=== PATIENT | male | born 1990 | race African-American/Black ===

== ENCOUNTER 2020-11-20 06:19 | Day surgery (SDC) | payer OTHER, SELFPAY ==
[~2020-11-20] VITALS: Ht 172.7 cm; Wt 59.0 kg
[2020-11-20] MEDS ORDERED: BUPIVACAINE-MPF/EPI 0.25% 30 ML VIAL INJ ONE (08:08)
[2020-11-20] MEDS ORDERED: NEOSTIGMINE 1:1000 10 MG/10 ML VIAL ONE (08:53)
[2020-11-20] MEDS ORDERED: KETOROLAC 30 MG/ML VIAL ONE (08:53)
[2020-11-20] MEDS ORDERED: ROCURONIUM 50 MG/5 ML VIAL IV ONE (08:53)
[2020-11-20] MEDS ORDERED: ONDANSETRON 4 MG/2 ML VIAL ONE (08:53)
[2020-11-20] MEDS ORDERED: DEXAMETHASONE 4 MG/ML VIAL ONE (08:53)
[2020-11-20] MEDS ORDERED: PROPOFOL 200 MG/20 ML VIAL IV ONE (08:53)
[2020-11-20] MEDS ORDERED: LIDOCAINE MPF 2% 100 MG/5 ML VIAL INJ ONE (08:53)
[2020-11-20] MEDS ORDERED: GLYCOPYRROLATE 0.2 MG/ML VIAL ONE (08:53)
[2020-11-20] MEDS ORDERED: METOCLOPRAMIDE 10 MG/2 ML INJ VIAL ONE (08:53)
[2020-11-20] MEDS ORDERED: MEPERIDINE 25 MG/ML SYR ONE (08:54)
[2020-11-20] MEDS ORDERED: fentaNYL citrate 0.05 MG/ML VIAL ONE (08:54)
[2020-11-20] MEDS ORDERED: ONDANSETRON 4 MG/2 ML VIAL IVP PRN (09:55)
[2020-11-20] MEDS ORDERED: MEPERIDINE 25 MG/ML SYR IVP PRN (09:55)
[2020-11-20] MEDS ORDERED: LACTATED RINGERS 1,000 ML IV SCH (09:55)
[2020-11-20] MEDS ORDERED: fentaNYL citrate 0.05 MG/ML VIAL IVP PRN (09:55)
[2020-11-20] MEDS ORDERED: diphenhydrAMINE 50 MG/ML VIAL IVP PRN (09:55)
[2020-11-20] MEDS ORDERED: oxyCODONE/APAP 5/325 MG 1 TAB TAB PO PRN (09:55)
[2020-11-20] MEDS ORDERED: MORPHINE SULFATE 2 MG/ML SYR IVP PRN (10:30)
[2020-11-20] MEDS ORDERED: ONDANSETRON 4 MG/2 ML VIAL IV PRN (10:30)
[2020-11-20] MEDS ORDERED: HYDROcodone/APAP 5/325 MG 1 TAB TAB PO PRN (10:30)
[2020-11-20] MEDS ORDERED: MORPHINE SULFATE 4 MG/ML SYR IV PRN (10:30)
[2020-11-20] MEDS ORDERED: HYDROmorphone 1 MG/ML AMP IVP PRN (10:30)
== END 2020-11-20 12:20 | disposition home or self-care (01) ==
LOC: MDS 06:19 → MMU 06:20 → MDS 12:20
PROVIDERS: ATTEND Surgery
DX: K43.2 Incisional hernia without obstruction or gangrene (principal); K40.90 Unilateral inguinal hernia, without obstruction or gangrene, not specified as recurrent; Z79.899 Other long term (current) drug therapy; Z20.822 Contact with and (suspected) exposure to COVID-19
CPT/HCPCS: 49560; 71045; J0690; J1100; J1885; J2001; J2175; J2405; J2704; J2710; J2765; J3010; J3490; J7060; J7120; U0003